=== PATIENT | male | born 1955 | race Caucasian/White ===

== ENCOUNTER 2018-09-19 20:56 | Emergency (ER) | payer OTHER ==
[2018-09-19] MEDS ORDERED: Adacel (T-DAP) 0.5 ML SYRINGE ONE (22:02)
== END 2018-09-19 22:13 | disposition home or self-care (01) ==
LOC: ERS 20:56
DX: S01.01XA Laceration without foreign body of scalp, initial encounter (principal); E11.9 Type 2 diabetes mellitus without complications; E03.9 Hypothyroidism, unspecified; I10 Essential (primary) hypertension; F41.9 Anxiety disorder, unspecified; Z79.84 Long term (current) use of oral hypoglycemic drugs; Z79.899 Other long term (current) drug therapy; Z23 Encounter for immunization; W22.8XXA Striking against or struck by other objects, initial encounter
CPT/HCPCS: 12011; 90471; 90715

== ENCOUNTER 2019-02-27 15:57 | Outpatient (CLI) | payer OTHER ==
--- NOTE | 2019-02-27 16:25 | RAD ---
Exam: 5 views lumbar spine HISTORY: Lumbar radiculopathy FINDINGS: 5 lumbar type vertebra. In the neutral position, lumbar spine vertebral body heights are maintained. No significant spondylolisthesis. No evidence of spondylolysis. Upon flexion and extension, no abnormal motion Mild loss of disc space at L4-L5 and L5-S1. IMPRESSION: Mild degenerative change at L4-L5 and L5-S1.
== END 2019-02-27 15:58 | disposition home or self-care (01) ==
LOC: RAD 15:57
PROVIDERS: ATTEND Specialist
DX: M47.26 Other spondylosis with radiculopathy, lumbar region (principal); M47.817 Spondylosis without myelopathy or radiculopathy, lumbosacral region
CPT/HCPCS: 72100

== ENCOUNTER 2022-03-28 13:14 | Outpatient (CLI) | payer MEDICARE ==
[2022-03-28] MEDS ORDERED: Magnevist 469MG/ML 20 ML VIAL ONE (16:16)
== END 2022-03-28 13:15 | disposition home or self-care (01) ==
LOC: TBSIIMAG 13:14
PROVIDERS: ATTEND Urology
DX: C61 Malignant neoplasm of prostate (principal)
CPT/HCPCS: 72197; A9579

== ENCOUNTER 2022-04-04 09:23 | Outpatient (CLI) | payer MEDICARE ==
[2022-04-04] MEDS ORDERED: Iopamidol-370 76% 500 ML 1 ML ONE (13:22)
== END 2022-04-04 09:24 | disposition home or self-care (01) ==
LOC: BICCT 09:23
PROVIDERS: ATTEND Urology
DX: C61 Malignant neoplasm of prostate (principal)
CPT/HCPCS: 74178; 82565; Q9967

== ENCOUNTER 2022-11-20 09:53 | Outpatient (CLI) | payer MEDICARE ==
[2022-11-20 11:14] LABS: Bilirubin Neg (Negative); Blood, Urine Negative (Negative); Clarity Clear (Clear); Glucose, Urine (Dipstick) Normal (Negative); Ketone, Urine Negative (Negative); Leukocyte Negative (Negative); Nitrite Negative (Negative); Protein, Urine (Dipstick) Negative (Neg-Trace); Urobilinogen Normal mg/dL (Less than 2)
[2022-11-20 11:18] LABS: Hemoglobin 14.1 g/dL (13.5-17.5); Mean Corpuscular HGB CONC 35.3 g/dL (32.0-36.0); Mean Corpuscular Hemoglobin 32.4 pg (27.0-33.0); Mean Platelet Volume 9.7 fl (7.4-10.4); Platelet Count 230 10x3/uL (150-450); RBC Distribution Width 12.2 % (11.5-14.5); Red Blood Cell (RBC) Count 4.35 10x6/uL (4.32-5.72); White Blood Cell (WBC) Count 6.3 10x3/uL (3.5-10.5)
[2022-11-20 11:36] LABS: Bacteria/HPF None Seen HPF (None Seen); RBC/HPF None Seen HPF (0-3); Squamous Epithelial None Seen HPF (0-3); WBC/HPF None Seen HPF (0-3)
[2022-11-20 11:46] LABS: Anion Gap 12 mmol/L (10-20); BUN (Urea Nitrogen) 7 mg/dL (8.4-25.7); Calc. Creatinine Clearance 0 mL/min (70-130); Calcium 9.7 mg/dL (7.8-10.44); Carbon Dioxide 29 mmol/L (23-31); Chloride 102 mmol/L (98-107); Estimated GFR 95; Glucose 105 mg/dL (80-115); Potassium 4.4 mmol/L (3.5-5.1); Prothrombin Time 10.4 sec (9.5-12.1); Sodium 139 mmol/L (136-145)
== END 2022-11-20 09:54 | disposition home or self-care (01) ==
LOC: LABBT 09:53
PROVIDERS: ATTEND Urology
DX: Z01.818 Encounter for other preprocedural examination (principal); C61 Malignant neoplasm of prostate; R97.20 Elevated prostate specific antigen [PSA]; N40.1 Benign prostatic hyperplasia with lower urinary tract symptoms; E34.9 Endocrine disorder, unspecified; E11.9 Type 2 diabetes mellitus without complications; R33.8 Other retention of urine; R53.82 Chronic fatigue, unspecified; N28.1 Cyst of kidney, acquired; Z80.42 Family history of malignant neoplasm of prostate; Z98.890 Other specified postprocedural states
CPT/HCPCS: 71046; 80048; 81001; 85027; 85610; 85730; 87086; 93005; 93010

== ENCOUNTER 2022-11-20 10:00 | Inpatient (IN) | payer MEDICARE ==
[2022-11-20 10:40] VITALS: BMI 26.9
[2022-11-27] MEDS ORDERED: Fentanyl 250 MCG/5 ML VIAL ONE (06:42)
[2022-11-27] MEDS ORDERED: SUGAMMADEX SODIUM 200 MG/2 ML VIAL ONE (06:43)
[2022-11-27] MEDS ORDERED: HYDROmorphone 0.5 MG/0.5 ML SYRINGE ONE (06:43)
[2022-11-27] MEDS ORDERED: Phenylephrine 10 MG/ML VIAL ONE (06:43)
[2022-11-27] MEDS ORDERED: Rocuronium Bromide 10 MG/ML (10ML VIAL) ONE (06:54)
[2022-11-27] MEDS ORDERED: Ondansetron PF 4 MG/2 ML Vial ONE (06:54)
[2022-11-27] MEDS ORDERED: Lidocaine 1% PF 5 ML VIAL ONE (06:54)
[2022-11-27] MEDS ORDERED: PROPOFOL 200 MG/20 ML VIAL ONE (06:54)
[2022-11-27] MEDS ORDERED: Dexamethasone 20 MG/5 ML VIAL ONE (06:54)
[2022-11-27] MEDS ORDERED: Vecuronium 10 MG VIAL ONE (06:54)
[2022-11-27] MEDS ORDERED: Bupivacaine HCl 0.5%/Epinephrine 1:200,000/PF 30 ml Vial ONE (06:54)
[2022-11-27] MEDS ORDERED: ceFOXitin 1 GM VIAL ONE ×2 (06:55→08:34)
[2022-11-27] MEDS ORDERED: Sodium Chloride 0.9% 100 ML ONE (06:55)
[2022-11-27] MEDS ORDERED: LevoFLOXacin 500 mg/D5W 100 ML BAG ONE (06:55)
[2022-11-27] MEDS ORDERED: Ondansetron HCl/PF 4 MG/2 ML Vial IVP PRN (07:07)
[2022-11-27] MEDS ORDERED: HYDROmorphone 2 MG/ML VIAL SLOW IVP PRN (07:07)
[2022-11-27] MEDS ORDERED: Promethazine HCl 25 MG/ML VIAL IM PRN (07:07)
[2022-11-27] MEDS ORDERED: Bupivacaine 0.25% HCL 30 ML VIAL ONE (08:03)
[2022-11-27] MEDS ORDERED: EPINEPHrine 1 MG/ML AMP ONE (08:03)
[2022-11-27] MEDS ORDERED: Mag-Al 1200 mg/1200 mg/30 ML UDCUP PO PRN (13:35)
[2022-11-27] MEDS ORDERED: Zolpidem Tartrate 5 MG TAB PO PRN (13:35)
[2022-11-27] MEDS ORDERED: Ondansetron PF 4 MG/2 ML Vial IVP PRN (13:35)
[2022-11-27] MEDS ORDERED: Glucagon 1 MG/ML KIT IM PRN (13:35)
[2022-11-27] MEDS ORDERED: Insulin Regular 300 UNITS/3 ML VIAL SC PRN (13:35)
[2022-11-27] MEDS ORDERED: HYDROcodone/Acetaminophen 7.5/325 mg Tablet PO PRN (13:35)
[2022-11-27] MEDS ORDERED: Dextrose 50% Abboject 50 ML SYRINGE SLOW IVP PRN (13:35)
[2022-11-27] MEDS ORDERED: Oxybutynin 5 MG TAB PO PRN (13:35)
[2022-11-27] MEDS ORDERED: Morphine 2 MG/ML VIAL SLOW IVP PRN (13:35)
[2022-11-27] MEDS ORDERED: diphenhydrAMINE 50 MG/ML VIAL IVP PRN (13:35)
[2022-11-27] MEDS ORDERED: Dextrose 5% in Water 1,000 ML IV PRN (13:35)
[2022-11-27 15:15] LABS: #Monocytes 0.6 thou/uL (0.11-0.59); #Neutrophils 18.2 thou/uL (1.40-6.50); %Basophils 0.2 % (0.0-1.0); %Lymphocytes 2.8 % (21.0-51.0); %Monocytes 3.3 % (0.0-10.0); %Neutrophils 93.3 % (42.0-75.0); Hematocrit 37.7 % (42.0-52.0); Hemoglobin 13.6 g/dL (14.0-18.0); Mean Corpuscular HGB CONC 36.1 g/dL (32.0-36.0); Mean Corpuscular Hemoglobin 32.9 pg (27.0-31.0); Mean Corpuscular Volume 91.1 fl (78.0-98.0); Mean Platelet Volume 9.5 fL (7.4-10.4); Platelet Count 196 10x3/uL (130-400); RBC Distribution Width 12.2 % (11.5-14.5); Red Blood Cell (RBC) Count 4.14 mill/uL (4.70-6.10); White Blood Cell (WBC) Count 19.5 10x3/uL (4.8-10.8)
[2022-11-27 15:35] LABS: Anion Gap 15 mmol/L (10-20); BUN (Urea Nitrogen) 13 mg/dL (8.4-25.7); Calc. Creatinine Clearance 83 mL/min (70-130); Calcium 9.3 mg/dL (7.8-10.44); Carbon Dioxide 26 mmol/L (23-31); Chloride 101 mmol/L (98-107); Estimated GFR 80; Glucose 208 mg/dL (80-115); Potassium 3.6 mmol/L (3.5-5.1); Sodium 138 mmol/L (136-145)
[2022-11-27] MEDS ORDERED: Hydrochlorothiazide 25 MG TAB PO SCH (16:45)
[2022-11-27] MEDS ORDERED: Ketorolac Tromethamine 30 MG/ML VIAL ONE (16:53)
[2022-11-27] MEDS: Ketorolac Tromethamine 30 MG/ML VIAL IVP SCH (18:38)
[2022-11-27] MEDS: Rosuvastatin 20 MG TAB PO SCH (20:44)
[2022-11-27] MEDS: Sodium Chloride 0.9% 1,000 ML IV SCH (20:44)
[2022-11-27] MEDS: Docusate 100 MG CAP PO SCH (20:45)
[2022-11-27] MEDS: Gabapentin 100 MG CAP PO SCH (20:45)
[2022-11-28] MEDS: Sodium Chloride 0.9% 1,000 ML IV SCH ×4 (00:09→14:19)
[2022-11-28] MEDS: Ketorolac Tromethamine 30 MG/ML VIAL IVP SCH ×4 (00:10→17:57)
[2022-11-28] MEDS: cefTRIAXone\\ROCEPHIN 1 GM in Sodium Chloride 0.9% 100 ML IVPB SCH (05:18)
[2022-11-28] MEDS: Levothyroxine Sodium 100 MCG TAB PO SCH (05:18)
[2022-11-28 06:13] LABS: #Monocytes 1.2 thou/uL (0.11-0.59); #Neutrophils 12.5 thou/uL (1.40-6.50); %Basophils 0.1 % (0.0-1.0); %Eosinophils 0.1 % (0.0-10.0); %Lymphocytes 10.6 % (21.0-51.0); %Monocytes 7.6 % (0.0-10.0); %Neutrophils 81.1 % (42.0-75.0); Hematocrit 34.4 % (42.0-52.0); Mean Corpuscular HGB CONC 34.9 g/dL (32.0-36.0); Mean Corpuscular Hemoglobin 32.5 pg (27.0-31.0); Mean Corpuscular Volume 93.2 fl (78.0-98.0); Mean Platelet Volume 9.5 fL (7.4-10.4); Platelet Count 209 10x3/uL (130-400); RBC Distribution Width 12.3 % (11.5-14.5); Red Blood Cell (RBC) Count 3.69 mill/uL (4.70-6.10); White Blood Cell (WBC) Count 15.4 10x3/uL (4.8-10.8)
[2022-11-28 06:33] LABS: Anion Gap 11 mmol/L (10-20); BUN (Urea Nitrogen) 9 mg/dL (8.4-25.7); Calc. Creatinine Clearance 102 mL/min (70-130); Calcium 8.8 mg/dL (7.8-10.44); Carbon Dioxide 26 mmol/L (23-31); Chloride 102 mmol/L (98-107); Estimated GFR 97; Glucose 109 mg/dL (80-115); Potassium 3.9 mmol/L (3.5-5.1); Sodium 135 mmol/L (136-145)
[2022-11-28] MEDS: Losartan 25 MG TAB PO SCH (09:06)
[2022-11-28] MEDS: Docusate 100 MG CAP PO SCH ×2 (09:06→21:53)
[2022-11-28] MEDS: metFORMIN 500 MG TAB PO SCH (09:07)
[2022-11-28] MEDS: Polyethylene Glycol 3350 17 GM Packet PER TUBE SCH (09:07)
[2022-11-28] MEDS: Multivitamin W/ Minerals 1 TAB PO SCH (09:07)
[2022-11-28] MEDS: Hydrochlorothiazide 25 MG TAB PO SCH (09:07)
[2022-11-28] MEDS: HYDROcodone/Acetaminophen 7.5/325 mg Tablet PO PRN ×2 (14:19→21:53)
[2022-11-28 15:34] LABS: Hematocrit 32.8 % (42.0-52.0); Hemoglobin 11.7 g/dL (14.0-18.0)
[2022-11-28] MEDS: Gabapentin 100 MG CAP PO SCH (21:52)
[2022-11-28] MEDS: Rosuvastatin 20 MG TAB PO SCH (21:53)
[2022-11-29] MEDS: Ketorolac Tromethamine 30 MG/ML VIAL IVP SCH ×5 (01:09→23:34)
[2022-11-29] MEDS: Levothyroxine Sodium 100 MCG TAB PO SCH (05:57)
[2022-11-29] MEDS: cefTRIAXone\\ROCEPHIN 1 GM in Sodium Chloride 0.9% 100 ML IVPB SCH (06:18)
[2022-11-29 07:02] LABS: #Eosinphils 0.4 thou/uL (0.0-0.7); #Monocytes 0.9 thou/uL (0.11-0.59); #Neutrophils 8.2 thou/uL (1.40-6.50); %Basophils 0.2 % (0.0-1.0); %Eosinophils 3.7 % (0.0-10.0); %Lymphocytes 17.1 % (21.0-51.0); %Monocytes 7.6 % (0.0-10.0); %Neutrophils 71.1 % (42.0-75.0); Hematocrit 35.7 % (42.0-52.0); Hemoglobin 12.6 g/dL (14.0-18.0); Mean Corpuscular HGB CONC 35.3 g/dL (32.0-36.0); Mean Corpuscular Hemoglobin 32.8 pg (27.0-31.0); Mean Platelet Volume 9.3 fL (7.4-10.4); Platelet Count 217 10x3/uL (130-400); RBC Distribution Width 12.4 % (11.5-14.5); Red Blood Cell (RBC) Count 3.84 mill/uL (4.70-6.10); White Blood Cell (WBC) Count 11.5 10x3/uL (4.8-10.8)
[2022-11-29 07:30] LABS: Anion Gap 11 mmol/L (10-20); BUN (Urea Nitrogen) 7 mg/dL (8.4-25.7); Calc. Creatinine Clearance 104 mL/min (70-130); Calcium 8.9 mg/dL (7.8-10.44); Carbon Dioxide 25 mmol/L (23-31); Chloride 100 mmol/L (98-107); Estimated GFR 97; Glucose 129 mg/dL (80-115); Potassium 3.7 mmol/L (3.5-5.1); Sodium 132 mmol/L (136-145)
[2022-11-29] MEDS: Polyethylene Glycol 3350 17 GM Packet PER TUBE SCH (09:04)
[2022-11-29] MEDS: Multivitamin W/ Minerals 1 TAB PO SCH (09:05)
[2022-11-29] MEDS: Hydrochlorothiazide 25 MG TAB PO SCH (09:05)
[2022-11-29] MEDS: metFORMIN 500 MG TAB PO SCH (09:05)
[2022-11-29] MEDS: Losartan 25 MG TAB PO SCH (09:05)
[2022-11-29] MEDS: Docusate 100 MG CAP PO SCH ×2 (09:05→21:04)
[2022-11-29] MEDS ORDERED: Bisacodyl 10 MG SUPP PR SCH (13:45)
[2022-11-29] MEDS: Gabapentin 100 MG CAP PO SCH (21:03)
[2022-11-29] MEDS: Rosuvastatin 20 MG TAB PO SCH (21:03)
[2022-11-29] MEDS: Metoclopramide HCl 10 MG/2 ML VIAL IVP SCH (21:04)
[2022-11-29] MEDS: Acetaminophen 500 MG TAB PO PRN (21:15)
[2022-11-30] MEDS: Metoclopramide HCl 10 MG/2 ML VIAL IVP SCH ×4 (05:30→23:18)
[2022-11-30] MEDS: Ketorolac Tromethamine 30 MG/ML VIAL IVP SCH ×4 (05:30→23:18)
[2022-11-30] MEDS: cefTRIAXone\\ROCEPHIN 1 GM in Sodium Chloride 0.9% 100 ML IVPB SCH (05:30)
[2022-11-30] MEDS: Levothyroxine Sodium 100 MCG TAB PO SCH (05:31)
[2022-11-30 05:38] LABS: #Eosinphils 0.6 thou/uL (0.0-0.7); #Monocytes 0.9 thou/uL (0.11-0.59); #Neutrophils 11.4 thou/uL (1.40-6.50); %Basophils 0.1 % (0.0-1.0); %Eosinophils 4.2 % (0.0-10.0); %Lymphocytes 9.8 % (21.0-51.0); %Monocytes 6.2 % (0.0-10.0); %Neutrophils 79.4 % (42.0-75.0); Hematocrit 38.1 % (42.0-52.0); Hemoglobin 13.7 g/dL (14.0-18.0); Mean Corpuscular Hemoglobin 32.8 pg (27.0-31.0); Mean Corpuscular Volume 91.1 fl (78.0-98.0); Mean Platelet Volume 9.4 fL (7.4-10.4); Platelet Count 235 10x3/uL (130-400); RBC Distribution Width 12.1 % (11.5-14.5); Red Blood Cell (RBC) Count 4.18 mill/uL (4.70-6.10); White Blood Cell (WBC) Count 14.4 10x3/uL (4.8-10.8)
[2022-11-30 06:01] LABS: Anion Gap 14 mmol/L (10-20); BUN (Urea Nitrogen) 8 mg/dL (8.4-25.7); Calc. Creatinine Clearance 96 mL/min (70-130); Calcium 9.2 mg/dL (7.8-10.44); Carbon Dioxide 27 mmol/L (23-31); Chloride 97 mmol/L (98-107); Estimated GFR 95; Glucose 133 mg/dL (80-115); Potassium 3.8 mmol/L (3.5-5.1); Sodium 134 mmol/L (136-145)
[2022-11-30] MEDS: Multivitamin W/ Minerals 1 TAB PO SCH (09:40)
[2022-11-30] MEDS: metFORMIN 500 MG TAB PO SCH (09:40)
[2022-11-30] MEDS: Docusate 100 MG CAP PO SCH ×2 (09:40→21:07)
[2022-11-30] MEDS: Losartan 25 MG TAB PO SCH (09:40)
[2022-11-30] MEDS: Polyethylene Glycol 3350 17 GM Packet PER TUBE SCH (09:41)
[2022-11-30] MEDS: Hydrochlorothiazide 25 MG TAB PO SCH (09:41)
[2022-11-30] MEDS: Acetaminophen 500 MG TAB PO PRN (17:47)
[2022-11-30] MEDS: Rosuvastatin 20 MG TAB PO SCH (21:07)
[2022-11-30] MEDS: Gabapentin 100 MG CAP PO SCH (21:07)
[2022-11-30] MEDS: hydrALAZINE 20 MG/ML VIAL SLOW IVP PRN (23:35)
[2022-12-01] MEDS: Levothyroxine Sodium 100 MCG TAB PO SCH (06:03)
[2022-12-01] MEDS: Metoclopramide HCl 10 MG/2 ML VIAL IVP SCH (06:04)
[2022-12-01] MEDS: Ketorolac Tromethamine 30 MG/ML VIAL IVP SCH ×2 (06:04→12:00)
[2022-12-01] MEDS: cefTRIAXone\\ROCEPHIN 1 GM in Sodium Chloride 0.9% 100 ML IVPB SCH (06:04)
[2022-12-01] MEDS: Losartan 25 MG TAB PO SCH (06:32)
[2022-12-01] MEDS: Hydrochlorothiazide 25 MG TAB PO SCH (06:32)
[2022-12-01 07:35] LABS: #Eosinphils 0.5 thou/uL (0.0-0.7); #Monocytes 0.9 thou/uL (0.11-0.59); #Neutrophils 10.5 thou/uL (1.40-6.50); %Basophils 0.2 % (0.0-1.0); %Eosinophils 3.6 % (0.0-10.0); %Lymphocytes 8.9 % (21.0-51.0); %Monocytes 7.1 % (0.0-10.0); Hematocrit 35.4 % (42.0-52.0); Mean Corpuscular HGB CONC 36.7 g/dL (32.0-36.0); Mean Corpuscular Hemoglobin 32.7 pg (27.0-31.0); Mean Corpuscular Volume 89.2 fl (78.0-98.0); Mean Platelet Volume 9.3 fL (7.4-10.4); Platelet Count 249 10x3/uL (130-400); RBC Distribution Width 11.9 % (11.5-14.5); Red Blood Cell (RBC) Count 3.97 mill/uL (4.70-6.10); White Blood Cell (WBC) Count 13.1 10x3/uL (4.8-10.8)
[2022-12-01] MEDS: hydrALAZINE 20 MG/ML VIAL SLOW IVP PRN (07:47)
[2022-12-01 07:54] LABS: Anion Gap 12 mmol/L (10-20); BUN (Urea Nitrogen) 7 mg/dL (8.4-25.7); Calc. Creatinine Clearance 118 mL/min (70-130); Calcium 8.6 mg/dL (7.8-10.44); Carbon Dioxide 25 mmol/L (23-31); Chloride 96 mmol/L (98-107); Estimated GFR 101; Glucose 134 mg/dL (80-115); Potassium 3.2 mmol/L (3.5-5.1); Sodium 130 mmol/L (136-145)
[2022-12-01] MEDS ORDERED: Potassium Chloride 20 MEQ TAB PO SCH (08:00)
[2022-12-01] MEDS ORDERED: Amlodipine 5 MG TAB PO SCH ×2 (09:00)
[2022-12-01] MEDS: metFORMIN 500 MG TAB PO SCH (09:08)
[2022-12-01] MEDS: Polyethylene Glycol 3350 17 GM Packet PER TUBE SCH (09:09)
[2022-12-01] MEDS: Multivitamin W/ Minerals 1 TAB PO SCH (09:09)
[2022-12-01] MEDS: Docusate 100 MG CAP PO SCH (09:09)
[2022-12-01 12:06] VITALS: BP 149/82; TEMP 97.4
== END 2022-12-01 14:00 | disposition home or self-care (01) | DRG 707 ==
LOC: SURG A 11-27 06:00 → EDSTATUS 11-27 10:00 → SJJU 11-27 17:20
PROVIDERS: ADMIT Urology; ATTEND Urology
PROC: 0VT04ZZ Resection of Prostate, Percutaneous Endoscopic Approach (ICD-10-PCS; principal; 2022-11-27)
PROC: 8E0W4CZ Robotic Assisted Procedure of Trunk Region, Percutaneous Endoscopic Approach (ICD-10-PCS; 2022-11-27)
DX: C61 Malignant neoplasm of prostate (principal); E87.1 Hypo-osmolality and hyponatremia; N40.1 Benign prostatic hyperplasia with lower urinary tract symptoms; K42.9 Umbilical hernia without obstruction or gangrene; Z88.2 Allergy status to sulfonamides; E87.6 Hypokalemia; I10 Essential (primary) hypertension; E78.00 Pure hypercholesterolemia, unspecified; E03.9 Hypothyroidism, unspecified; E11.9 Type 2 diabetes mellitus without complications
CPT/HCPCS: 36415; 36416; 80048; 82570; 85025; 86850; 86870; 86900; 86901; 86922; 88309; C1713; C1776; C2613; J0171; J0360; J0694; J0696; J1100; J1170; J1815; J1885; J1956; J2370; J2405; J2704; J2765; J3010; J3490; J7050; S0020

== ENCOUNTER 2022-12-12 09:29 | Outpatient (CLI) | payer MEDICARE ==
[2022-12-12] MEDS ORDERED: Iopamidol-370 76% 500 ML MDV (1 ML CHARGE) ONE (11:23)
== END 2022-12-12 09:30 | disposition home or self-care (01) ==
LOC: RAD 09:29
PROVIDERS: ATTEND Urology
DX: C61 Malignant neoplasm of prostate (principal)
CPT/HCPCS: 51600; 74430; Q9967

== ENCOUNTER 2024-02-20 12:30 | Outpatient (CLI) | payer MEDICARE | END 2024-02-20 12:31 | disposition home or self-care (01) | LOC: PET 12:30 | PROVIDERS: ATTEND Urology | DX: C61 Malignant neoplasm of prostate (principal) | CPT/HCPCS: 78815; A9552; A9595 ==